=== PATIENT | male | born 1965 | race Caucasian/White ===

== ENCOUNTER 2018-05-22 06:37 | Day surgery (SDC) | payer OTHER ==
[~2018-05-22] VITALS: Ht 165.1 cm; Wt 59.9 kg
[2018-05-22] MEDS ORDERED: fentaNYL 0.05 MG/ML VIAL ONE (08:27)
[2018-05-22] MEDS ORDERED: LIDOCAINE 2% 100 MG/5 ML UJET TP ONE (08:28)
[2018-05-22] MEDS ORDERED: MIDAZOLAM 2 MG/2 ML VIAL ONE ×2 (08:28)
[2018-05-22] MEDS ORDERED: MIDAZOLAM 2 MG/2 ML VIAL IVP ONE (09:40)
== END 2018-05-22 09:55 | disposition home or self-care (01) ==
LOC: MDS 06:37 → MMU 06:58 → MDS 09:55
PROVIDERS: ATTEND Internal Medicine Gastroenterology
DX: Z12.11 Encounter for screening for malignant neoplasm of colon (principal); D12.5 Benign neoplasm of sigmoid colon; F17.210 Nicotine dependence, cigarettes, uncomplicated; Z88.5 Allergy status to narcotic agent; Z85.028 Personal history of other malignant neoplasm of stomach; Z90.3 Acquired absence of stomach [part of]
CPT/HCPCS: 43235; 45385; J2250; J3010